=== PATIENT | female | born 1950 | race Caucasian/White ===

== ENCOUNTER 2018-07-19 10:15 | Outpatient (CLI) | payer BC, SELFPAY ==
[2018-07-19 13:40] LABS: Abs Immature Grans 0.01 k/cumm (0.0-0.09); Absolute Basophil Count 0.04 k/cumm (0.0-0.2); Absolute Eosinophil Count 0.23 k/cumm (0.0-0.7); Absolute Lymphocyte Count 1.24 k/cumm (1.2-3.4); Absolute Monocyte Count 0.44 k/cumm (0.11-0.7); Absolute Neutrophil Count 2.44 k/cumm (1.2-6.7); Basophils % 0.9; Eosinophils % 5.2; HCT 36.8 % (36.0-46.0); HGB 12.2 g/dL (12.0-15.5); Immature Grans % 0.2; Lymphocytes % 28.2; Mean Corp. HGB Concentration 33.2 g/dL (32.0-36.0); Mean Corpuscular Volume 87.4 fL (80-95); Mean Platelet Volume 9.9 fL (8.0-11.0); Neutrophils % 55.5; Platelet Count 278 x1000/uL (130-400); RBC 4.21 m/cumm (4.00-5.20); RBC Distribution Width 14.2 % (11.7-14.6)
[2018-07-19 14:20] LABS: ALT 30 U/L (12-78); AST 23 U/L (15-37); Albumin 3.6 g/dL (3.4-5.0); Alkaline Phosphatase 70 U/L (46-116); Anion Gap 6.9 mmol/L (3-11); BUN 16 mg/dL (7-18); Bilirubin, Total 0.3 mg/dL (0.2-1.0); C-Reactive Protein 0.65 mg/dL (0.0-0.3); CO2 28.1 mmol/L (21.0-32.0); CREATININE 0.96 mg/dL (0.55-1.02); Chloride 105 mmol/L (98-107); ESR 29 MM/HR (0-30); Estimated GFR 58.15 (mL/min/1.73m2); Glucose 96 mg/dL (70-100); Potassium 4.2 mmol/L (3.5-5.1); Sodium 140 mmol/L (136-145); Total Protein 6.9 g/dL (6.4-8.2)
== END 2018-07-19 10:35 ==
PROVIDERS: Visit Provider Internal Medicine
DX: M35.3 Polymyalgia rheumatica (principal); Z79.899 Other long term (current) drug therapy
CPT/HCPCS: 36415; 80053; 85652; 85025; 86140

== ENCOUNTER 2019-02-19 15:48 | Outpatient (CLI) | payer BC, SELFPAY ==
[2019-02-19 16:41] LABS: Absolute Basophil Count 0.03 k/cumm (0.0-0.2); Absolute Eosinophil Count 0.27 k/cumm (0.0-0.7); Absolute Lymphocyte Count 1.63 k/cumm (1.2-3.4); Absolute Monocyte Count 0.52 k/cumm (0.11-0.7); Absolute Neutrophil Count 2.89 k/cumm (1.2-6.7); Basophils % 0.6; Eosinophils % 5.1; HCT 39.5 % (36.0-46.0); HGB 12.7 g/dL (12.0-15.5); Lymphocytes % 30.5; Mean Corp. HGB Concentration 32.2 g/dL (32.0-36.0); Mean Corpuscular Hemoglobin 27.7 pg (27.0-33.0); Mean Corpuscular Volume 86.2 fL (80-95); Mean Platelet Volume 10.2 fL (8.0-11.0); Monocytes % 9.7; Neutrophils % 54.1; Platelet Count 284 x1000/uL (130-400); RBC 4.58 m/cumm (4.00-5.20); RBC Distribution Width 13.8 % (11.7-14.6); White Blood Cell Count 5.34 k/cumm (4.4-10.8)
[2019-02-19 17:05] LABS: ALT 36 U/L (12-78); AST 23 U/L (15-37); Albumin 2.5 g/dL (3.4-5.0); Alkaline Phosphatase 71 U/L (46-116); BUN 25 mg/dL (7-18); Bilirubin, Total 0.2 mg/dL (0.2-1.0); C-Reactive Protein 0.53 mg/dL (0.0-0.3); CREATININE 1.09 mg/dL (0.55-1.02); Chloride 104 mmol/L (98-107); Estimated GFR 50.07 (mL/min/1.73m2); Glucose 98 mg/dL (70-100); Potassium 4.4 mmol/L (3.5-5.1); Sodium 139 mmol/L (136-145)
[2019-02-19 17:56] LABS: ESR 36 MM/HR (0-30)
== END 2019-02-19 16:08 ==
PROVIDERS: Visit Provider Internal Medicine
DX: M35.3 Polymyalgia rheumatica (principal); Z79.899 Other long term (current) drug therapy
CPT/HCPCS: 36415; 80053; 85652; 85025; 86140

== ENCOUNTER 2019-04-24 01:24 | Outpatient (CLI) | payer BC, SELFPAY ==
[2019-04-24 07:55] LABS: ALT 31 U/L (12-78); AST 19 U/L (15-37); Albumin 3.6 g/dL (3.4-5.0); Alkaline Phosphatase 72 U/L (46-116); Anion Gap 8.8 mmol/L (3-11); BUN 19 mg/dL (7-18); Bilirubin, Total 0.4 mg/dL (0.2-1.0); CO2 28.2 mmol/L (21.0-32.0); Calcium 8.5 mg/dL (8.5-10.1); Chloride 104 mmol/L (98-107); Estimated GFR 49.54 (mL/min/1.73m2); Glucose 107 mg/dL (70-100); Potassium 4.5 mmol/L (3.5-5.1); Sodium 141 mmol/L (136-145); Total Protein 7.2 g/dL (6.4-8.2)
[2019-04-24 07:56] LABS: Calculated LDL 106 mg/dL; Cholesterol 184 mg/dL (50-200); HDL Cholesterol 58 mg/dL (40-60); Triglyceride 100 mg/dL (30-150)
[2019-04-24 08:20] LABS: Abs Immature Grans 0.01 k/cumm (0.0-0.09); Absolute Basophil Count 0.02 k/cumm (0.0-0.2); Absolute Eosinophil Count 0.28 k/cumm (0.0-0.7); Absolute Lymphocyte Count 1.16 k/cumm (1.2-3.4); Absolute Monocyte Count 0.41 k/cumm (0.11-0.7); Absolute Neutrophil Count 2.08 k/cumm (1.2-6.7); Basophils % 0.5; Eosinophils % 7.1; HCT 39.6 % (36.0-46.0); HGB 12.6 g/dL (12.0-15.5); Immature Grans % 0.3; Lymphocytes % 29.3; Mean Corp. HGB Concentration 31.8 g/dL (32.0-36.0); Mean Corpuscular Hemoglobin 27.8 pg (27.0-33.0); Mean Corpuscular Volume 87.2 fL (80-95); Mean Platelet Volume 10.3 fL (8.0-11.0); Monocytes % 10.4; Neutrophils % 52.4; Platelet Count 269 x1000/uL (130-400); RBC 4.54 m/cumm (4.00-5.20); RBC Distribution Width 14.5 % (11.7-14.6); White Blood Cell Count 3.96 k/cumm (4.4-10.8)
[2019-04-24 09:03] LABS: ESR 34 mm/hr (0-30)
== END 2019-04-24 01:44 ==
PROVIDERS: Visit Provider Internal Medicine
DX: I10 Essential (primary) hypertension (principal); M35.3 Polymyalgia rheumatica; Z13.220 Encounter for screening for lipoid disorders; Z79.899 Other long term (current) drug therapy
CPT/HCPCS: 36415; 80053; 80061; 83721; 85652; 85025; 86140

== ENCOUNTER 2019-05-29 00:40 | Outpatient (CLI) | payer BC, SELFPAY ==
--- NOTE | 2019-05-29 07:49 | DI.MAMMO_ITS ---
SYMPTOM/DIAGNOSIS: SCREENING, Z12.39 MAMMOGRAMS: Mammograms were interpreted according to the usual protocol including computer analysis with CAD system, tomosynthesis and C view imaging. Comparison is made with exams from [id number]. The breasts are composed of fatty density tissue, breast density, Category A. No suspicious masses or suspicious microcalcifications are seen. There has been no significant change. IMPRESSION: Category 1,. negative mammogram. Yearly screening mammography is recommended. [facility] ASSESSMENT OF FINDINGS: Negative. Category 1. Patient will receive a letter notifying them of these results. BI-RAD category A. The breasts are almost entirely fatty.
== END 2019-05-29 01:00 ==
DX: Z12.31 Encounter for screening mammogram for malignant neoplasm of breast (principal)
CPT/HCPCS: 77063; 77067

== ENCOUNTER 2019-09-05 01:19 | Outpatient (CLI) | payer BC, SELFPAY ==
[2019-09-05 08:08] LABS: Abs Immature Grans 0.01 k/cumm (0.0-0.09); Absolute Basophil Count 0.02 k/cumm (0.0-0.2); Absolute Lymphocyte Count 1.11 k/cumm (1.2-3.4); Absolute Monocyte Count 0.47 k/cumm (0.11-0.7); Absolute Neutrophil Count 2.47 k/cumm (1.2-6.7); Basophils % 0.4; Eosinophils % 8.9; HCT 38.3 % (36.0-46.0); HGB 12.3 g/dL (12.0-15.5); Immature Grans % 0.2; Lymphocytes % 24.8; Mean Corp. HGB Concentration 32.1 g/dL (32.0-36.0); Mean Corpuscular Hemoglobin 27.8 pg (27.0-33.0); Mean Corpuscular Volume 86.7 fL (80-95); Monocytes % 10.5; Neutrophils % 55.2; Platelet Count 296 x1000/uL (130-400); RBC 4.42 m/cumm (4.00-5.20); RBC Distribution Width 14.5 % (11.7-14.6); White Blood Cell Count 4.48 k/cumm (4.4-10.8)
[2019-09-05 09:25] LABS: Hemoglobin A1C 5.8 % (4.5-6.2)
[2019-09-05 09:32] LABS: ALT 29 U/L (14-59); AST 25 U/L (15-37); Albumin 3.6 g/dL (3.4-5.0); Alkaline Phosphatase 65 U/L (46-116); BUN 21 mg/dL (7-18); Bilirubin, Total 0.4 mg/dL (0.2-1.0); C-Reactive Protein 0.77 mg/dL (0.0-0.3); CREATININE 0.93 mg/dL (0.55-1.02); Calcium 8.7 mg/dL (8.5-10.1); Chloride 107 mmol/L (98-107); Glucose 101 mg/dL (74-106); Potassium 4.5 mmol/L (3.5-5.1); Sodium 142 mmol/L (136-145); Total Protein 6.9 g/dL (6.4-8.2)
[2019-09-05 09:53] LABS: ESR 28 mm/hr (0-30)
== END 2019-09-05 01:39 ==
PROVIDERS: Visit Provider Internal Medicine
DX: M35.3 Polymyalgia rheumatica (principal); Z79.899 Other long term (current) drug therapy; R73.09 Other abnormal glucose
CPT/HCPCS: 36415; 80053; 85652; 83036; 85025; 86140

== ENCOUNTER 2020-05-05 02:55 | Outpatient (CLI) | payer MEDICARE, SELFPAY ==
[2020-05-05 10:06] LABS: Abs Immature Grans 0.01 10^3/uL (0.0-0.06); Absolute Basophil Count 0.03 10^3/uL (0.0-0.2); Absolute Eosinophil Count 0.23 10^3/uL (0.0-0.7); Absolute Lymphocyte Count 1.27 10^3/uL (1.2-3.4); Absolute Monocyte Count 0.35 10^3/uL (0.1-0.8); Absolute Neutrophil Count 2.66 10^3/uL (1.2-6.7); Basophils % 0.7; Eosinophils % 5.1; HCT 37.3 % (36.0-46.0); HGB 11.9 g/dL (11.2-15.7); Immature Grans % 0.2; Lymphocytes % 27.9; MCH 29.1 pg (27.0-33.0); MCHC 31.9 % (32.0-36.0); MCV 91.2 fL (80-95); MPV 9.9 fL (8.0-11.0); Monocytes % 7.7; Neutrophils % 58.4; Nucleated RBC 0 %; Platelet Count 265 10^3/uL (130-400); RBC 4.09 10^6/uL (3.93-5.22); RDW 13.4 % (11.7-14.6); RDW-SD 44.2 fL; WBC 4.55 10^3/uL (4.4-10.8)
[2020-05-05 10:48] LABS: ALT 32 U/L (14-59); AST 22 U/L (15-37); Albumin 3.5 g/dL (3.4-5.0); Alkaline Phosphatase 57 U/L (46-116); Anion Gap 8.3 mmol/L (3-11); BUN 18 mg/dL (7-18); Bilirubin, Total 0.3 mg/dL (0.2-1.0); C-Reactive Protein 0.48 mg/dL (0.0-0.3); CO2 27.7 mmol/L (21.0-32.0); CREATININE 1.02 mg/dL (0.55-1.02); Calcium 8.5 mg/dL (8.5-10.1); Chloride 107 mmol/L (98-107); Estimated GFR 53.89 (mL/min/1.73m2); Glucose 90 mg/dL (74-106); Potassium 4.5 mmol/L (3.5-5.1); Sodium 143 mmol/L (136-145); Total Protein 6.8 g/dL (6.4-8.2)
[2020-05-05 11:02] LABS: ESR 27 mm/hr (0-30)
== END 2020-05-05 03:15 ==
PROVIDERS: Visit Provider Internal Medicine
DX: M35.3 Polymyalgia rheumatica (principal); Z79.899 Other long term (current) drug therapy
CPT/HCPCS: 36415; 80053; 85652; 85025; 86140

== ENCOUNTER 2020-11-11 03:06 | Outpatient (CLI) | payer MEDICARE, SELFPAY ==
[2020-11-11 10:31] LABS: HCT 38.3 % (36.0-46.0); HGB 12.4 g/dL (11.2-15.7); MCH 28.4 pg (27.0-33.0); MCHC 32.4 % (32.0-36.0); MCV 87.6 fL (80-95); MPV 10.4 fL (8.0-11.0); Platelet Count 261 10^3/uL (130-400); RBC 4.37 10^6/uL (3.93-5.22); RDW 14.6 % (11.7-14.6); RDW-SD 46.7 fL; WBC 4.43 10^3/uL (4.4-10.8)
[2020-11-11 10:45] LABS: ALT 35 U/L (14-59); AST 23 U/L (15-37); Albumin 3.6 g/dL (3.4-5.0); Alkaline Phosphatase 70 U/L (46-116); Anion Gap 7.4 mmol/L (3-11); BUN 24 mg/dL (7-18); Bilirubin, Total 0.5 mg/dL (0.2-1.0); CO2 26.6 mmol/L (21.0-32.0); Calcium 8.9 mg/dL (8.5-10.1); Chloride 105 mmol/L (98-107); Estimated GFR 54.97 (mL/min/1.73m2); Glucose 100 mg/dL (74-106); Potassium 4.4 mmol/L (3.5-5.1); Sodium 139 mmol/L (136-145); Total Protein 7.1 g/dL (6.4-8.2)
== END 2020-11-11 03:07 | disposition home or self-care (01) ==
LOC: LBO 03:06
DX: M35.3 Polymyalgia rheumatica (principal); M17.12 Unilateral primary osteoarthritis, left knee
CPT/HCPCS: 36415; 80053; 85027

== ENCOUNTER 2021-01-14 15:57 | Outpatient (REF) | payer MEDICARE, SELFPAY ==
[2021-01-15 23:14] LABS: COVID-19 RT-PCR UVMMC Result Negative (Negative)
== END 2021-01-14 15:58 | disposition home or self-care (01) ==
LOC: LBN 15:57
PROVIDERS: Visit Provider Physician Assistant
DX: Z20.822 Contact with and (suspected) exposure to COVID-19 (principal); B34.9 Viral infection, unspecified
CPT/HCPCS: U0003; U0005

== ENCOUNTER 2021-05-13 03:43 | Outpatient (CLI) | payer MEDICARE, SELFPAY ==
[2021-05-13 09:36] LABS: ALT 30 U/L (14-59); AST 23 U/L (15-37); Albumin 3.6 g/dL (3.4-5.0); Alkaline Phosphatase 68 U/L (46-116); Anion Gap 6.5 mmol/L (3-11); BUN 15 mg/dL (7-18); Bilirubin, Total 0.4 mg/dL (0.2-1.0); CO2 29.5 mmol/L (21.0-32.0); CREATININE 1.1 mg/dL (0.55-1.02); Calcium 9.2 mg/dL (8.5-10.1); Chloride 107 mmol/L (98-107); Estimated GFR 49.25 (mL/min/1.73m2); Glucose 98 mg/dL (74-106); Sodium 143 mmol/L (136-145); Total Protein 6.9 g/dL (6.4-8.2)
== END 2021-05-13 03:44 | disposition home or self-care (01) ==
LOC: LBO 03:43
DX: M35.3 Polymyalgia rheumatica (principal); Z00.00 Encounter for general adult medical examination without abnormal findings
CPT/HCPCS: 36415; 80053

== ENCOUNTER 2021-06-02 01:41 | Outpatient (CLI) | payer MEDICARE, SELFPAY ==
--- NOTE | 2021-06-02 07:45 | DI.MAMMO_ITS ---
Exam(s) MAMMO SCREENING EXAM: MAMMO SCREENING CLINICAL HISTORY: screening, Z12.39 TECHNIQUE: Bilateral full field digital CC and MLO mammographic images were obtained with 3D tomosyn thesis and utilizing computer aided detection (CAD). COMPARISON: Available for comparison. FINDINGS: Masses/Architectural Distortion: None seen. Microcalcifications: No suspicious pleomorphic-type are seen. Skin Thickening/Nipple Retraction: None. IMPRESSION: 1. No significant interval change with no specific features of malignancy noted. 2. Unless there is more urgent need, screening mammography is recommended, as per [employer] [employer] guidelines. BI-RADS Category 1 - Negative Breast Density - Category A - Almost entirely fatty Breast density category C or D implies that the patient has dense breast tissue. Dense breast tissue is very common and is not abnormal but dense breast tissue can make it harder to find cancer on a ma mmogram. Also, dense breast tissue may increase their breast cancer risk. This information about the result of the mammogram report was provided to the patient to raise their awareness. Use this report when you speak with the patient about their risks for breast cancer, which includes their family hist ory. At that time, you may recommend for more screening tests (Ultrasound or MRI) as they might be us eful based on their risk. A negative radiographic report should not delay biopsy if a dominant or clinically suspicious mass is present. Up to ten percent of cancers are not identified on mammography. A negative report may reinforce clinical impression. Adenosis and dense breasts may obscure an underlying neoplasm. False positive reports average 6 to 10%. Patient will receive a letter notifying them of these results.
== END 2021-06-02 02:01 ==
DX: Z12.31 Encounter for screening mammogram for malignant neoplasm of breast (principal)
CPT/HCPCS: 77063; 77067

== ENCOUNTER 2022-03-14 03:49 | Outpatient (CLI) | payer MEDICARE, SELFPAY ==
[2022-03-14 09:29] LABS: ALT 33 U/L (14-59); AST 24 U/L (15-37); Albumin 3.5 g/dL (3.4-5.0); Alkaline Phosphatase 68 U/L (46-116); Anion Gap 4.8 mmol/L (3-11); BUN 17 mg/dL (7-18); Bilirubin, Total 0.5 mg/dL (0.2-1.0); CO2 30.2 mmol/L (21.0-32.0); CREATININE 1.2 mg/dL (0.55-1.02); Calcium 8.8 mg/dL (8.5-10.1); Chloride 104 mmol/L (98-107); Estimated GFR 44.41 (mL/min/1.73m2); Glucose 106 mg/dL (74-106); Potassium 4.7 mmol/L (3.5-5.1); Sodium 139 mmol/L (136-145); Total Protein 7.3 g/dL (6.4-8.2)
== END 2022-03-14 03:50 | disposition home or self-care (01) ==
LOC: LBO 03:49
DX: M35.3 Polymyalgia rheumatica (principal)
CPT/HCPCS: 36415; 80053

== ENCOUNTER 2022-09-14 02:28 | Outpatient (CLI) | payer MEDICARE, OTHER, SELFPAY ==
[2022-09-14 12:44] LABS: ALT 28 U/L (14-59); AST 26 U/L (15-37); Albumin 3.7 g/dL (3.4-5.0); Alkaline Phosphatase 75 U/L (46-116); Anion Gap 8.2 mmol/L (3-11); BUN 24 mg/dL (7-18); Bilirubin, Total 0.4 mg/dL (0.2-1.0); CO2 27.8 mmol/L (21.0-32.0); CREATININE 1.2 mg/dL (0.55-1.02); Chloride 106 mmol/L (98-107); Glucose 103 mg/dL (74-106); Potassium 4.3 mmol/L (3.5-5.1); Sodium 142 mmol/L (136-145); Total Protein 7.4 g/dL (6.4-8.2)
== END 2022-09-14 02:29 | disposition home or self-care (01) ==
LOC: LOS 02:28
PROVIDERS: PCP Nurse Practitioner Family
DX: M35.3 Polymyalgia rheumatica (principal)
CPT/HCPCS: 36415; 80053

== ENCOUNTER 2022-12-05 20:53 | Outpatient (REF) | payer MEDICARE, OTHER, SELFPAY ==
[2022-12-05 22:05] LABS: Abs Immature Grans 0.02 10^3/uL (0.0-0.06); Absolute Basophil Count 0.04 10^3/uL (0.0-0.2); Absolute Eosinophil Count 0.28 10^3/uL (0.0-0.7); Absolute Lymphocyte Count 1.22 10^3/uL (1.2-3.4); Absolute Monocyte Count 0.45 10^3/uL (0.1-0.8); Absolute Neutrophil Count 3.34 10^3/uL (1.2-6.7); Basophils % 0.7; Eosinophils % 5.2; HCT 40.9 % (36.0-46.0); HGB 13.1 g/dL (11.2-15.7); Immature Grans % 0.4; Lymphocytes % 22.8; MCH 28.5 pg (27.0-33.0); MCV 89 fL (80-95); MPV 11.1 fL (8.0-11.0); Monocytes % 8.4; Neutrophils % 62.5; Platelet Count 280 10^3/uL (130-400); RDW 13.5 % (11.7-14.6); WBC 5.35 10^3/uL (4.4-10.8)
[2022-12-05 22:12] LABS: ALT 33 U/L (14-59); AST 24 U/L (15-37); Albumin 3.9 g/dL (3.4-5.0); Alkaline Phosphatase 78 U/L (46-116); Anion Gap 6.7 mmol/L (3-11); BUN 21 mg/dL (7-18); Bilirubin, Total 0.4 mg/dL (0.2-1.0); CO2 28.3 mmol/L (21.0-32.0); CREATININE 1.2 mg/dL (0.55-1.02); Calcium 9.4 mg/dL (8.5-10.1); Chloride 106 mmol/L (98-107); Estimated GFR 48.39 (mL/min/1.73m2); Glucose 105 mg/dL (74-106); Potassium 4.8 mmol/L (3.5-5.1); Sodium 141 mmol/L (136-145); Total Protein 7.1 g/dL (6.4-8.2)
== END 2022-12-05 20:54 | disposition home or self-care (01) ==
LOC: LBN 20:53
PROVIDERS: PCP Nurse Practitioner Family; Visit Provider Nurse Practitioner Family
DX: N93.8 Other specified abnormal uterine and vaginal bleeding (principal); R10.9 Unspecified abdominal pain
CPT/HCPCS: 80053; 85025

== ENCOUNTER 2022-12-06 22:26 | Outpatient (REF) | payer MEDICARE, OTHER, SELFPAY | END 2022-12-06 22:27 | disposition home or self-care (01) | LOC: LBN 22:26 | PROVIDERS: PCP Nurse Practitioner Family; Visit Provider Nurse Practitioner Family | DX: N93.8 Other specified abnormal uterine and vaginal bleeding (principal); R10.9 Unspecified abdominal pain | CPT/HCPCS: 87086 ==

== ENCOUNTER 2022-12-23 00:24 | Outpatient (CLI) | payer MEDICARE, OTHER, SELFPAY ==
--- NOTE | 2022-12-23 07:45 | DI.CT_ITS ---
Exam(s) CT ABDOMEN PELVIS W EXAM: CT ABDOMEN PELVIS W CLINICAL HISTORY: cramping and VAGINAL bleeding x 2 months,N93.9 TECHNIQUE: Imaging Protocol: Axial computed tomography images with coronal and sagittal reformatted images were created and reviewed CONTRAST MATERIAL: Intravenous: Omnipaque 350 Contrast volume:100 mL Oral: Yes COMPARISON: No exams were available for comparison FINDINGS: ABDOMEN: Lung Bases: There is a moderate size hiatal hernia. Liver: Normal density. No measurable mass. Portal, Superior Mesenteric, and Splenic Veins: Unremarkable. Gallbladder and Biliary Tract: Status post cholecystectomy. No significant biliary ductal dilatation . Pancreas: Normal density, no abnormal calcifications or inflammatory process. Spleen: Normal. Adrenals: No masses seen. Kidneys: Normal size, contour and axis. No radiodense stones or obstructive uropathy. No masses seen. Abdominal Aorta: Abdominal portion non-dilated. Atherosclerosis. Bowel: There is diverticulosis of the colon, but no evidence of acute diverticulitis. No evidence of bowel obstruction, inflammation or infection. No evidence of appendicitis. Peritoneal Cavity: No ascites, collection or mesenteric inflammatory response. No free air. Lymph Nodes: Within normal limits. Bones: Within normal limits for the patient's age. Schmorl's nodes are seen at the superior endplate s of L2 and L3. There is sclerosis of the sacroiliac joints bilaterally suggesting sacroiliitis. No ankylosis is seen at this time. Soft Tissues: Unremarkable. PELVIS: Bladder: Symmetric distention, no gross wall thickening. Reproductive Organs: Unremarkable as visualized. Lymph Nodes: Within normal limits. Bones: Please see the above section under abdomen. IMPRESSION: 1. Unremarkable appearance of the reproductive organs. If there is continued concern a pelvic ultras ound may be obtained. 2. Colonic diverticulosis, but no evidence of acute diverticulitis. 3. Status post cholecystectomy. No biliary ductal dilatation. 4. Moderate size hiatal hernia. RADIATION DOSE DELIVERED: 1,002.98mGy.cm Total DLP DATA REPOSITORY: All CT scans at this facility are submitted to the National Radiology Data Registry (NRDR) Dose Index Registry (DIR) with the [employer] (ACR). RADIATION OPTIMIZATION: All CT scans at this facility use at least one of these dose optimization te chniques: automated exposure control; mA and/or kV adjustment per patient size (includes targeted exa ms where dose is matched to clinical indication); or iterative reconstruction.
[2022-12-23] MEDS: Barium Sulfate 2% W/V-Creamy Vanilla Smoothie 450 ML BTL PO (11:08)
[2022-12-23] MEDS: Normal Saline - Diluent 50 ML VIAL IJ (13:10)
[2022-12-23] MEDS: Omnipaque 350 MG/ML 500 ML BTL-Imaging package IJ (13:11)
== END 2022-12-23 00:44 ==
LOC: DI 00:24
PROVIDERS: PCP Nurse Practitioner Family; Visit Provider Nurse Practitioner Family
DX: N93.9 Abnormal uterine and vaginal bleeding, unspecified
CPT/HCPCS: 74177; 82565

== ENCOUNTER → 2023-01-18 13:26 | Outpatient (BNVA) | payer MEDICARE, OTHER, SELFPAY | PROVIDERS: PCP Nurse Practitioner Family; Visit Provider Surgery | DX: K92.2 Gastrointestinal hemorrhage, unspecified (principal) | CPT/HCPCS: 99203 ==

== ENCOUNTER 2023-01-23 09:40 | Day surgery (SDC) | payer MEDICARE, OTHER, SELFPAY ==
--- NOTE | 2023-01-22 20:25 | W.PM.DSUDISC ---
Date of service: 01/23/23 Time of Service: 12:26 Discharge Plan Disposition Patient Disposition: Home Condition: Good Discharge Details Reason For Visit: screening colonoscopy Attending Provider: Julian Patel Primary Care Provider: Shiraz Gibson Home Meds and New Rx's Prescriptions: Continued Ib-N6-gmc-dcrn-ydz-nrwa-bor 1 EACH tablet 3 tab PO DAILY BARBARA stockings 1 packet Topical DAILY Qty: 3 1RF Rx Instructions: Measure and fit for BARBARA stocking b/l. 25-30mmHG. On in the am and off at HS. multivitamin [Daily Multiple] 1 EACH tablet 1 ea PO DAILY VITAMIN D3 1,000 UNIT tablet 1,000 unit PO DAILY folic acid 1 mg tablet 1 mg PO DAILY Qty: 90 3RF hydroxychloroquine 200 mg tablet 400 mg PO DAILY Qty: 180 3RF methotrexate sodium 2.5 mg tablet See Rx Instructions .ROUTE .COMPLEX Qty: 48 0RF Dose Instruction: TAKE 4 TABLETS BY MOUTH EVERY WEEK Rx Instructions: TAKE 4 TABLETS BY MOUTH EVERY WEEK Discontinued polyethylene glycol 3350 17 gram/dose powder 238 g PO ONCE Qty: 238 0RF Rx Instructions: take per colonoscopy instructions bisacodyl [Dulcolax (bisacodyl)] 5 mg tablet,delayed release (DR/EC) 5 mg PO ONCE Qty: 4 0RF Rx Instructions: take per colonoscopy instructions Discharge Instructions Instructions: Diverticulosis (GEN), Diverticulosis Diet (GEN), Diverticulitis (GEN) Additional Instructions: Delfina, we were able to complete your colonoscopy today without any difficulty. As was evident on your CAT scan, you have colonic diverticulosis. Although the majority of the diverticula are on the right side, or the ascending colon, there are other scattered diverticula along the length of the entire large intestine. These can cause bleeding, as well as pain. I have attached some information here regarding diverticulosis, and general management of it. Because of the fact that your entire large intestine is affected by the diverticulosis, there is not a simple operation to deal with this. I think we should try to exhaust nonoperative treatments such as diet modification and antibiotic therapy in the case that you are experiencing active diverticulitis. I also took some random biopsies along the length of your large intestine even though it appeared normal to the naked eye. We will take a week or so to get the results of those biopsies, but I will be in touch when the pathology report is finalized. 1. If tolerated, consume a soft, low fiber diet for 1-2 days. 2. Do not drive, drink alcohol, operate machinery, make critical decisions, or do activities that require coordination or balance for 24 hours. 3. Because air was put into your colon during the procedure, expelling air from your rectum (passing gas or farting) is normal. 4. You may not have a bowel movement for 1-3 days because of the colonoscopy prep. This is normal. 5. Go directly to the emergency room if you notice any of the following: Develop chills (warm to touch), or if you have a thermometer and your temperature is above 101 Difficulty breathing or difficultly swallowing Persistent vomiting Severe abdominal pain, other than gas cramps Severe chest pain Black, tarry stools Any bleeding ? exceeding one tablespoon 6. Call your physician if the site where your intravenous was started becomes red, swollen, painful, and warm to touch. 7. Your physician has reviewed your pre-procedure medications. Please continue to take those medications as previously ordered. You will be given specific information/education regarding any changes to your medications before leaving. Activity:: Activity as Tolerated Diet:: As Tolerated Discharge Orders Discharge Orders: Discharge Order (Routine); Ordered 01/22/23 Ordered By: Julian Patel DS: Diagnosis Discharge Diagnosis (1) Colon cancer screening: Status: Acute Asessment and Plan: Follow-up on biopsy results
--- NOTE | 2023-01-22 20:27 | COLE_ITS ---
Date of service: 01/23/23 Time of Service: 12:30 Colonoscopy Report Date of procedure: 01/23/23 Pre-op diagnosis general: Screening colonoscopy Post-op diagnosis procedure note: other (Diverticulosis) Procedure: Colonoscopy with random biopsies Surgeon: Julian Patel Anesthesia Type: General:No Airway Estimated blood loss (mL): 15 Pathology: other (And the biopsies of the ascending transverse and descending colons) Complications: None Disposition: same day Indications: Delfina is a 72 year old woman who has been experiencing bloody anal discharge intermittently over the past few months. She also has occasional crampy abdominal pain. She is actually overdue for screening colonoscopy Prep: Miralax/Dulcolax Procedure Start Time: 12:06 Procedure End Time: 12:17 Retraction Time: 7 Findings: Pancolonic diverticulosis Procedure Description: After the induction of monitored anesthetic care, and with the patient in left lateral decubitus position, I began by performing an external anorectal exam.? Perineum and skin were normal, as was the anal verge.? There was no evidence of external hemorrhoids.? Next, I performed a digital rectal exam.? I did not appreciate any abnormal findings.? Next, I advanced a colonoscope into the rectal vault.? I performed retroflexion.? There were no pathologic internal hemorrhoids..? Using insufflation, I then advanced the colonoscope beyond the rectal folds and into the sigmoid colon before advancing towards the cecum.? The quality of the prep was excellent.? Colonic diverticula were noted starting in the sigmoid colon. The diverticula were sparse up to the level of the mid trans verse colon, where they became more frequent. Heaviest concentration of diverticulosis was in the ascending colon. The scope was noted to be in the cecum by identification of the ileocecal valve and appendiceal orifice.? I then began withdrawing the colonoscope using repeated irrigation as necessary for full evaluation of the colonic mucosa. ?Once the scope was withdrawn to the level of the rectum, great care was taken to examine portions of the rectal folds.? Finally, the scope was withdrawn and the patient was brought to the same-day surgery recovery unit as the anesthetic wore off. ?The findings and instructions were shared with the patient prior to discharge.
--- NOTE | 2023-01-23 06:22 | ANES.PREOP_ITS ---
General Info Date of Service Date Performed: 01/23/23 Height: 5 ft 2 in Weight: 99.79 kg Body Mass Index (BMI): 40.2 Surgical Procedure: Operation Date: 01/23/23 11:40 Proposed Procedure Side Surgeon p Colonoscopy Julian Patel MD s Possible Hemorrhoid Banding Julian Patel MD Meds Allergies and Home Medications Allergies Allergy/AdvReac Type Severity Reaction Status Date / Time No Known Allergies Allergy Verified 01/20/23 14:44 Home Medication Medication Instructions Recorded keexfha-P5-squ-Wo-wxkuk-bdtf-boron 3 tab PO DAILY 01/28/13 600 mg-200 unit-40 mg-7.5 mg tablet multivitamin (Daily Multiple 1 ea PO DAILY 12/21/15 tablet) Vitamin D3 1,000 unit PO DAILY 02/16/16 folic acid 1 mg tablet 1 mg PO DAILY #90 tab-caps 06/13/22 hydroxychloroquine 200 mg tablet 400 mg PO DAILY #180 tabs 08/03/22 methotrexate sodium 2.5 mg tablet See Rx Instructions .Route 12/19/22 .COMPLEX #48 tabs Current Visit Medications: Current Medications Generic Name Dose Route Start Last Admin Trade Name Freq PRN Reason Stop Dose Admin Hyoscyamine Sulfate 0.125 mg 01/22/23 20:28 Hyoscyamine 0.125 Mg Sl/Oral/Chew SL DIRECTED PRN Ringer's Solution 1,000 mls @ 80 mls/hr 01/23/23 06:00 IV 02/19/23 23:59 [facility] IV Miscellaneous Supplies 1 each 01/23/23 06:00 Iv Access IV 02/19/23 23:59 DIRECTED [facility] Ondansetron HCl 4 mg 01/22/23 20:28 Ondansetron 4 Mg/2 Ml Vial IVP Q4H PRN PRN Nausea / Vomiting Sodium Chloride 0 ml 01/23/23 06:00 Normal Saline Flush 10 Ml Syr IV 02/19/23 23:59 PRN PRN Sodium Chloride 0 ml 01/23/23 06:00 Normal Saline 10 Ml Vial IJ 02/19/23 23:59 DIRECTED PRN Sterile Water 0 ml 01/23/23 06:00 Water,Injection,Sterile 10 Ml Vial IJ 02/19/23 23:59 DIRECTED PRN PFSH Active Problems Active Problems: Problem Status Onset Code Colon cancer screening Z12.11 Primary osteoarthritis of left knee 06/01/15 M17.12 Polymyalgia rheumatica 09/20/12 M35.3 Osteopenia 09/25/12 M85.80 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/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 Increased body mass index R63.8 History of cataract removal with insertion of prosthetic lens 03/02/16 Z98.49, Z96.1 Dyspnea on exertion 03/25/13 R06.09 Chronic diarrhea K52.9 Knee pain, right M25.561 Vaginal bleeding N93.9 Surgical History Surgical History Cholecystectomy Extraction of cataract 03/02/16- RIGHT EYE; [facility] 03/16/16- LEFT EYE History of bilateral ligation of fallopian tubes Ligation of fallopian tube BSO Status post cholecystectomy Tobacco Smoking/Tobacco Use Status: Never Passive smoking exposure: Yes Second hand exposure: Yes Alcohol Alcohol Intake: never Substance Use Substance use: Never Substance use type: does not use Vital Signs and Lab Results Vital Signs Most Recent Vital Signs in EMR: Temp Pulse Resp BP Pulse Ox 36.1 C L 69 16 142/66 H 100 01/23/23 10:43 01/23/23 10:43 01/23/23 10:43 01/23/23 10:43 01/23/23 10:43 Lab Results Blood Type / Crossmatch: No Data to Display Complete Blood Count: No Data to Display Complete Metabolic Panel: No Data to Display Liver Function Panel: No Data to Display Coagulation Panel: No Data to Display Cardiac Panel: No Data to Display Arterial Blood Gas: No Data to Display Venous Blood Gas: No Data to Display Pancreas Panel: No Data to Display Thyroid Panel: No Data to Display Infectious Disease: No Data to Display Blood Cultures: No Data to Display Toxicology Panel: No Data to Display Imaging and Studies Imaging and Studies Study information below may be from another EMR and interpreted by another provider. Please see original notes in EMR for more complete details. Stress Test Summary: 2012: negative. Echocardiogram Summary: 2015: LVEF 65%, mild MR, mild-mod TR, PAS 40-45 mmhg Anesthesia Assessment and Plan Anesthesia History Personal History: No History of Anesthesia Complications Family History: No Family History of Anesthesia Complications Exercise Tolerance Exercise Tolerance: Metabolic Equivalents>4 Cardiac & Pulmonary Exam Cardiac Exam: Normal S1/S2 Heart Sounds Pulmonary Exam: Clear Bilateral Breath Sounds Implantable Cardiac Device Does patient have a Pacemaker or an ICD?: No Airway Exam Known Difficult Airway: No Mallampati Class: 3 Mouth Opening: Narrow (< 3cm) Thyromental Distance: Greater than 3 cm Neck Range of Motion: Full ROM Neck Circumference: Normal Teeth Condition: Normal Dentition, Removable Dentures/Plates Upper and Removable Dentures/Plates Lower ASA Classification ASA Score: ASA 3 Emergency Case?: No NPO Status NPO Status: NPO Clears >2 hours, Solids >8 hours Anesthesia Plan Resuscitation Status: Full Code Anesthesia Technique: General Anesthesia Airway Planned: Natural Airway Monitors Used: Standard Monitors Preoperative Comments:: 72 yo female for colo. Sig PMHx: polymyalgia (methotrexate, hydroxychloroquine), GUEVARA, never smoker, 2015: LVEF 65%, mild MR, mild-mod TR, PAS 40-45 mmhg
[2023-01-23 10:43] VITALS: BP 142/66; PULSE 69; RESP 16; TEMP 36.1; O2SAT 100
[2023-01-23] MEDS: Lactated Ringers 1,000 ML 80 ML IV (11:28)
[2023-01-23 11:57] VITALS: BMI 40.2
--- NOTE | 2023-01-23 12:12 | BOWEL_PTH ---
PATIENT: Delfina Ramirez LOC: [facility] U#:[id number] AGE/SX: 72/F ROOM: RE01/23/[address]: Julian Patel MD : [id number] BED: DIS: 01/23/2023 SPEC #: [id number] RECD: 01/23/23 12:28 STATUS: IDALIA REQ #: [id number] ANTONI: 01/23/23 12:[address]: Julian Patel DEPT: Surgical Specimen RECD BY: Helga Sims ENTERED: 01/23/23 12:29 SP TYPE: Bowel OTHR DR: Shiraz Moon, DESTINY Tissues: 1 - BIOPSY BOWEL Procedures: GROSS AND MICRO LEVEL 4 Comments: [id number]
[2023-01-23 12:22] VITALS: BP 135/68; PULSE 68; RESP 17; TEMP 36.5; O2SAT 97
--- NOTE | 2023-01-23 12:49 | W.ANESPOSTOP ---
Postoperative Evaluation Date, Time and Location Date Performed: 01/23/23 Time Performed: 12:50 Patient Location: Day Surgery Unit Vital Signs Most Recent Imported Vital Signs: Most Recent Vital Signs Temp Pulse Resp BP Pulse Ox 36.5 C 68 17 135/68 97 01/23/23 12:22 01/23/23 12:22 01/23/23 12:22 01/23/23 12:22 01/23/23 12:22 Pain Score Most Recent Pain Score: Most Recent Pain Score Pain Level 0 01/23/23 12:22 Assessment Mental Status: Awake (Alert & Oriented to Patient Baseline) Airway and Respiratory Function: Patent airway with normal (patient baseline) respiratory exam Cardiovascular Function: Hemodynamically Stable Hydration Status: Adequately Hydrated Nausea & Vomiting: No Nausea or Vomiting Pain: Pt. Denies Any Pain Peripheral Nerve Block: Patient did not receive a nerve block
[2023-01-23 12:52] VITALS: BP 139/77; PULSE 70; RESP 17; TEMP 36.5; O2SAT 99
== END 2023-01-23 13:09 | disposition home or self-care (01) ==
PROVIDERS: PCP Nurse Practitioner Family; Visit Provider Surgery
PROC: 0DJD8ZZ Inspection of Lower Intestinal Tract, Via Natural or Artificial Opening Endoscopic (ICD-10-PCS; CPT 45378; principal; 2023-01-23 11:30)
DX: K62.5 Hemorrhage of anus and rectum (principal); K57.30 Diverticulosis of large intestine without perforation or abscess without bleeding
CPT/HCPCS: 45380; 88305

== ENCOUNTER → 2024-01-29 02:19 | Outpatient (CLI) | payer MEDICARE, OTHER, SELFPAY ==
--- NOTE | 2024-01-29 07:45 | DI.MAMMO_ITS ---
Exam(s) MAMMO SCREENING EXAM: MAMMO SCREENING CLINICAL HISTORY: screening,z12.39 TECHNIQUE: Bilateral full field digital CC and MLO mammographic images were obtained with 3D tomosyn thesis and utilizing computer aided detection (CAD). COMPARISON: Available for comparison. FINDINGS: Masses/Architectural Distortion: None seen. Microcalcifications: No suspicious pleomorphic-type are seen. Skin Thickening/Nipple Retraction: None. IMPRESSION: 1. No significant interval change with no specific features of malignancy noted. 2. Unless there is more urgent need, screening mammography is recommended, as per [employer] guidelines. BI-RADS Category 1 - Negative Breast Density - Category A - Almost entirely fatty Breast density category C or D implies that the patient has dense breast tissue. Dense breast tissue is very common and is not abnormal but dense breast tissue can make it harder to find cancer on a ma mmogram. Also, dense breast tissue may increase their breast cancer risk. This information about the result of the mammogram report was provided to the patient to raise their awareness. Use this report when you speak with the patient about their risks for breast cancer, which includes their family hist ory. At that time, you may recommend for more screening tests (Ultrasound or MRI) as they might be us eful based on their risk. A negative radiographic report should not delay biopsy if a dominant or clinically suspicious mass is present. Up to ten percent of cancers are not identified on mammography. A negative report may reinforce clinical impression. Adenosis and dense breasts may obscure an underlying neoplasm. False positive reports average 6 to 10%. Patient will receive a letter notifying them of these results.
== END ==
PROVIDERS: PCP Nurse Practitioner Family; Visit Provider Nurse Practitioner Family
DX: Z12.31 Encounter for screening mammogram for malignant neoplasm of breast (principal)
CPT/HCPCS: 77063; 77067

== ENCOUNTER → 2024-02-16 00:12 | Outpatient (CLI) | payer MEDICARE, OTHER, SELFPAY ==
--- NOTE | 2024-02-16 09:25 | DI.RAD_ITS ---
Exam(s) XR WRIST LT COMPLETE EXAM: XR WRIST LT COMPLETE CLINICAL HISTORY: acute left wrist pain, M25.532. TECHNIQUE: 2D digital imaging was performed. Three views. COMPARISON: No exams were available for comparison FINDINGS: BONES: No acute fracture is present. No bony destructive lesion is seen. JOINTS: The carpal bones are normally aligned. Mild degenerative changes. SOFT TISSUE: Swelling. No foreign body or gas collection. IMPRESSION: Soft tissue swelling. No acute bony abnormality. DATA REPOSITORY: RADIATION DOSE DELIVERED:
== END ==
PROVIDERS: PCP Nurse Practitioner Family; Visit Provider Nurse Practitioner Family
DX: M25.532 Pain in left wrist (principal)
CPT/HCPCS: 73110

== ENCOUNTER 2024-06-27 01:08 | Outpatient (CLI) | payer MEDICARE, OTHER, SELFPAY ==
--- NOTE | 2024-06-27 12:30 | DI.DEXA_ITS ---
Exam(s) XR DEXA BONE DENSITY W/WO BEBA EXAM: XR DEXA BONE DENSITY W/WO BEBA CLINICAL HISTORY: screening for osteoporosis in postmenopausal status, z78.0 TECHNIQUE: [employer] Horizon C densitometer analysis of left hip, lumbar spine and left forearm. Lat eral survey image of the thoracic and lumbar spine. COMPARISON: DX DEXA BONE DENSITY WITH BEBA from 09/25/2012 DX DEXA BONE DENSITY WITH BEBA from 04/19/2016 FINDINGS: Lateral view of the thoracic and lumbar spine shows no evidence of compression fractures. Bone mineral density measurements of the lumbar spine correspond to a total T-score of 1.0, in the n ormal range. This represents a 19.6 percent increase from 2015 and the 19.1 percent increase from . Bone mineral density measurements of the left hip correspond to a total T-score of -0.3. This is no t significantly changed from the prior exam where it presents a 7.8 percent decrease from 2012. The femoral neck T-score is -1.8, in the osteopenic range.. Theleft forearm bone mineral density measurements correspond to a T-score of the distal 3rd of 0.0, in the normal range. This represents a 2.3 percent decrease from 2015 and 4.6 percent decrease from 2012.. IMPRESSION: Normal bone mineral density of the spine and forearm. Osteopenia of the hip.
== END 2024-06-27 01:28 ==
LOC: DI 01:08
PROVIDERS: PCP Nurse Practitioner Family; Visit Provider Nurse Practitioner Family
DX: Z13.820 Encounter for screening for osteoporosis (principal); Z78.0 Asymptomatic menopausal state
CPT/HCPCS: 77080

== ENCOUNTER 2024-08-01 01:51 | Outpatient (CLI) | payer MEDICARE, OTHER, SELFPAY ==
[2024-08-01 10:15] LABS: ALT 26 U/L (14-59); AST 22 U/L (15-37); Albumin 3.5 g/dL (3.4-5.0); Alkaline Phosphatase 73 U/L (46-116); Anion Gap 8.9 mmol/L (3-11); BUN 22 mg/dL (7-18); Bilirubin, Total 0.41 mg/dL (0.2-1.0); CO2 27.1 mmol/L (21.0-32.0); CREATININE 1.3 mg/dL (0.55-1.02); Calculated LDL 83 mg/dL (<100); Chloride 109 mmol/L (98-107); Cholesterol 166 mg/dL (<200); Estimated GFR 43.69 (mL/min/1.73m2); Glucose 94 mg/dL (74-106); HDL Cholesterol 61 mg/dL (40-60); Potassium 4.2 mmol/L (3.5-5.1); Sodium 145 mmol/L (136-145); Total Protein 7.4 g/dL (6.4-8.2); Triglyceride 111 mg/dL (<150)
[2024-08-01 19:10] LABS: HIV-1/2 Ag & Ab Screen Negative (Negative)
[2024-08-01 19:21] LABS: Hepatitis C Ab w Rflx HCV PCR Negative (Negative)
== END 2024-08-01 01:52 | disposition home or self-care (01) ==
LOC: LBO 01:51
PROVIDERS: PCP Nurse Practitioner Family; Visit Provider Nurse Practitioner Family
DX: E78.5 Hyperlipidemia, unspecified (principal); Z11.4 Encounter for screening for human immunodeficiency virus [HIV]; Z11.59 Encounter for screening for other viral diseases
CPT/HCPCS: 36415; 80053; 80061; 86803; 87389

== ENCOUNTER 2025-07-03 19:09 | Emergency (ER) | payer MEDICARE, OTHER, SELFPAY ==
[2025-07-03 19:11] VITALS: BP 192/81; PULSE 75; RESP 15; TEMP 36.3; O2SAT 97
--- NOTE | 2025-07-03 19:19 | W.ED.GENAD ---
Discharge Plan Disposition Patient Disposition: Home Condition: Stable Discharge Details Clinical Impression: Rash Primary Care Provider: Shiraz Gibson ED Provider: Austen Leyva Home Meds and New Rx's Prescriptions: New prednisone 20 mg tablet 60 mg PO DAILY 4 Days Qty: 12 0RF Continued calcium citrate 250 mg calcium tablet 250 mg PO DAILY folic acid 1 mg tablet 1 mg PO DAILY Qty: 90 3RF methotrexate sodium 2.5 mg tablet See Rx Instructions .ROUTE .COMPLEX Qty: 48 3RF Dose Instruction: TAKE 4 TABLETS BY MOUTH EVERY WEEK Rx Instructions: TAKE 4 TABLETS BY MOUTH EVERY WEEK hydroxychloroquine 200 mg tablet See Rx Instructions .ROUTE .COMPLEX Qty: 180 3RF Dose Instruction: TAKE 2 TABLETS BY MOUTH DAILY Rx Instructions: TAKE 2 TABLETS BY MOUTH DAILY No Action BARBARA stockings 1 packet Topical DAILY Qty: 3 1RF Rx Instructions: Measure and fit for BARBARA stocking b/l. 25-30mmHG. On in the am and off at HS. multivitamin [Daily Multiple] 1 EACH tablet 1 ea PO DAILY VITAMIN D3 1,000 UNIT tablet 1,000 unit PO DAILY Discharge Instructions Additional Instructions: You likely had some environmental allergen like on your skin given how rapidly improved with Benadryl. You can continue to take Benadryl 25 to 50 mg as needed every 4-6 hours. Follow-up with your primary care provider as needed. If you feel significantly more ill or have new symptoms such as severe shortness of breath or severe abdominal pain return to emergency department for reevaluation. HPI General Mode of arrival: ambulatory. Date/Time Provider Initiated Documentation: 07/03/25 19:10. Limitations to Documentation: no limitations. Information obtained by: patient. History of Present Illness 74 year old F presents to the emergency department with the chief complaint of rash, described as moderate, Patient started experiencing this hour(s) (2) and it has been now resolved. other things that improve symptom(s), (benadryl) No exacerbating factors reported . Patient notes no other symptoms.. Patient did receive the following treatments prior to arrival, other (benadryl) Related Data Home Medications ?Medication ?Instructions ?Recorded ?Confirmed multivitamin (Daily Multiple 1 ea PO DAILY 12/21/15 07/03/25 tablet) Held on 07/03/25. Instructions: Pt Stopped/Never Started Vitamin D3 1,000 unit PO DAILY 02/16/16 07/03/25 Held on 07/03/25. Instructions: Pt Stopped/Never Started calcium citrate 250 mg PO DAILY 06/21/24 07/03/25 folic acid 1 mg tablet 1 mg PO DAILY #90 tab-caps 04/28/25 07/03/25 methotrexate sodium 2.5 mg tablet See Rx Instructions .Route 04/30/25 07/03/25 .COMPLEX #48 tabs hydroxychloroquine 200 mg tablet See Rx Instructions .Route 05/12/25 07/03/25 .COMPLEX #180 tabs prednisone 20 mg tablet 60 mg (3 x 20 mg) PO DAILY 4 days 07/03/25 #12 tabs Previous Rx's ?Medication ?Instructions ?Recorded folic acid 1 mg tablet 1 mg PO DAILY #90 tab-caps 04/28/25 methotrexate sodium 2.5 mg tablet See Rx Instructions .Route 04/30/25 .COMPLEX #48 tabs hydroxychloroquine 200 mg tablet See Rx Instructions .Route 05/12/25 .COMPLEX #180 tabs prednisone 20 mg tablet 60 mg (3 x 20 mg) PO DAILY 4 days 07/03/25 #12 tabs Allergies Allergy/AdvReac Type Severity Reaction Status Date / Time No Known Allergies Allergy Verified 07/03/25 19:14 General Stated Complaint: RashLesion XOCHITL: 4 Review of Systems All systems reviewed & are unremarkable except as noted in HPI and below Constitutional Constitutional: Denies chills, Denies fever(s) and Denies weakness Cardiovascular Cardiovascular: Denies chest pain and Denies dyspnea Respiratory Respiratory: Denies cough and Denies dyspnea Gastrointestinal Gastrointestinal: Denies abdominal pain and Denies vomiting Integumentary/Breasts Skin/Breast: Denies rash Neurologic Neurologic: Denies weakness Exam Const General: no acute distress Orientation: alert [facility] Head: normal to inspection Ears: external ears normal General nose exam: external nose normal Mouth: moist mucous membranes Eyes General: appearance normal, both eyes and all related structures Neck Neck: normal visual inspection Resp Effort & Inspection: normal respiratory effort and able to speak in complete sentences Cardio Rate: regular rate Skin General skin exam: no rashes or lesions noted Neuro General: patient alert and patient oriented x3 Extrem General: normal to inspection Psych Mental Status: mental status grossly normal Course Vital Signs Vital signs: Vital Signs Temperature 36.3 C L 07/03/25 19:11 Pulse 75 07/03/25 19:11 Respiratory Rate 15 07/03/25 19:11 Blood Pressure 192/81 H 07/03/25 19:11 Pulse Oximetry 97 07/03/25 19:11 Temperature 36.3 C L 07/03/25 19:11 Temperature Source Temporal Artery Scan 07/03/25 19:11 Pulse 75 07/03/25 19:11 Respiratory Rate 15 07/03/25 19:11 Blood Pressure 192/81 H 07/03/25 19:11 Blood Pressure Position Sitting 07/03/25 19:11 Pulse Oximetry 97 07/03/25 19:11 Oxygen Delivery Method Room Air 07/03/25 19:11 Oxygen Flow Rate 0 07/03/25 19:11 Pain Level 0 07/03/25 19:11 Medical Decision Making 74-year-old female with a history of rheumatoid arthritis on methotrexate comes in with complaints of a rash. She says that she was in her usual state of health after working in her garage and woke going outside in the [place] for a brief period of time today she was sitting at home and started feeling itchy and she had a rash on her face and torso. She took Benadryl and then went to express care and then was referred here. On arrival here she is asymptomatic and the rash is resolved. She describes it as red blotchy areas on her torso and face. She never had any vomiting or difficulty breathing. There is plain no rash anymore so I suspect she had urticaria or some type of local skin reaction to environmental allergen since it responded so quickly to Benadryl. Able to start her on prednisone. I do not feel she requires an epinephrine pen. She will follow-up with her PCP as needed and return precautions given. Differential Diagnosis Differential Diagnosis: uritcaria, allergic reaction PFSH All Active Problems (Updated 07/03/25 @ 19:24 by Austen Leyva MD) Rash (Acute) Hyperlipidemia (Acute) Rheumatoid arthritis (Chronic) Seronegative Diverticulosis of colon (Acute) throughout Increased body mass index (Chronic) Osteopenia (Chronic 09/25/12) HIP Medical History (Updated 07/03/25 @ 19:24 by Austen Leyva MD) Left wrist pain Knee pain, right OA (osteoarthritis) of finger (03/26/15) Primary osteoarthritis of left knee (09/14/15) Colon cancer screening Vaginal bleeding Chronic diarrhea Dyspnea on exertion (03/25/13) Polymyalgia rheumatica (09/20/12) 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 Maternal Grandmother Diabetes Heart disease Paternal Grandmother Diabetes Daughter No problems noted. Daughter No problems noted. Social History Smoking/Tobacco Use Status: Never Second Hand Exposure: Yes Smoking risk assessment performed?: Yes Alcohol Intake: never Drug use: Never Substance use type: does not use Counseling given: No Adopted: No Caregiver/Support person: No Household members: spouse Housing: house Number of Children: 2 number of grandchildren: 5 Communication Needs: None Education Level: high school Do you need help understanding health information?: Never current occupation: retired Pets and animals: Yes Pets and animals: cat(s) Sexually active: No Do you think of yourself as: straight/heterosexual Current gender identity: female What is your relationship status?: How often do you talk on the phone with friends or family?: three or more times per week How often do you get together with friends or relatives?: three or more times per week How often do you attend religion or faith services?: 4 or more times per year Do you belong to any clubs or organized social groups?: yes Panel score (0-1 are the most socially isolated patients): 4 What type of physical activity do you participate in: walking Duration: 15-30 minutes/day Frequency: daily Anum/Jew: Congregational Special anum needs: No Seatbelt use: always Helmet use: Yes Helmet use: always Drive intox or ride w/intox 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
[2025-07-03] MEDS: predniSONE 20 MG TAB 60 MG PO (19:30)
== END 2025-07-03 19:34 | disposition home or self-care (01) ==
LOC: ER 19:34
PROVIDERS: Emergency Provider Emergency Medicine; PCP Nurse Practitioner Family
DX: R21 Rash and other nonspecific skin eruption (principal)
CPT/HCPCS: 99283 ×2; J7512